=== PATIENT | female | born 1980 | race Caucasian/White ===

== ENCOUNTER 2019-05-04 03:20 | Emergency (ER) | payer MEDICAID ==
[~2019-05-04] VITALS: Ht 170.2 cm; Wt 117.4 kg
[~2019-05-04 03:20] MED LIST: AMOX-291 PO; GABA300C10 PO; HYDR-3240 PO; METO-93 PO
[2019-05-04] MEDS ORDERED: HYDROcodone/APAP 5/325 TABLET ONE (03:58)
[2019-05-04] MEDS ORDERED: HYDROcodone/APAP 5/325 TABLET PO ONE (04:00)
[2019-05-04 05:56] VITALS: BP 134/74
== END 2019-05-04 06:00 | disposition home or self-care (01) ==
LOC: ED 03:50
DX: M79.671 Pain in right foot (principal)
CPT/HCPCS: 99283

== ENCOUNTER 2020-06-02 16:27 | Emergency (ER) | payer MEDICAID ==
[~2020-06-02] VITALS: Ht 167.6 cm; Wt 99.3 kg
--- NOTE | 2020-06-02 18:31 | NUR ---
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
--- NOTE | 2020-06-02 19:03 | NUR ---
PT STATES HAVING RT HAND PAIN X2 WEEKS. 7/10 PAIN RIGHT NOW, PT DENIES TAKING MEDICATION FOR PAIN. PT STATES SHE HAS HAD CARPEL TUNNEL SX ON THAT HAND ABOUT 8 YEARS AGO. PT RESTING IN GURBRYCE, RESP EVEN/UNLABORED. GAURDED MOVEMENT WITH RT HAND, AWAITING ERP EVAL
[2020-06-02] MEDS ORDERED: HYDROcodone/APAP 5/325 TABLET PO ONE (19:11)
[2020-06-02] MEDS ORDERED: HYDROcodone/APAP 5/325 TABLET ONE (19:18)
--- NOTE | 2020-06-02 19:24 | NUR ---
PT MEDICATED PER EMAR, XRAY AT BEDSIDE
[2020-06-02 20:19] VITALS: BP 102/60
== END 2020-06-02 21:02 | disposition home or self-care (01) ==
LOC: ED 18:52
DX: M77.9 Enthesopathy, unspecified (principal); M79.644 Pain in right finger(s); M79.89 Other specified soft tissue disorders
CPT/HCPCS: 29125; 99284

== ENCOUNTER 2020-10-25 11:23 | Emergency (ER) | payer MEDICAID ==
[~2020-10-25] VITALS: Ht 167.6 cm; Wt 91.0 kg
[~2020-10-25 11:23] MED LIST changes: +HYDR-2214 PO; -HYDR-3240 PO
[2020-10-25 12:10] LABS: BASOPHILS % (AUTO) 1 % (0-1); EOSINOPHILS % (AUTO) 1 % (1-7); LYMPHOCYTES % (AUTO) 19 % (22-44); MEAN CORPUSCULAR HEMOGLOBIN 27.9 pg (27.0-34.8); MEAN CORPUSCULAR HGB CONC 34.3 g/dL (32.4-35.8); MEAN PLATELET VOLUME 8.3 fL (7.4-10.4); MONOCYTES % (AUTO) 11 % (2-9); NEUTROPHILS % (AUTO) 68 % (42-75); PLATELET COUNT 345 x10^3/uL (130-400); RED BLOOD COUNT 5.13 x10^6/uL (3.82-5.3); RED CELL DISTRIBUTION WIDTH 14.6 % (9.6-15.2)
[2020-10-25 12:18] LABS: MD NO
[2020-10-25 12:20] LABS: ANION GAP 6 mmol/L (5-15); CALCIUM 8.7 mg/dL (8.5-10.1); CHLORIDE 107 mmol/L (98-107); CREATININE 0.87 mg/dL (0.55-1.02)
--- NOTE | 2020-10-25 12:22 | NUR ---
"I THINK I HAVE SOME TYPE OF PARASITE, MY BELLY BUTTON IS BLACK AND GOOPY AND I CAN FEEL THINGS." PATIENT C/O GENERALIZED PAIN. PT TO ROOM WITH STEADY GAIT. ATTACHED TO MONITORS. VSS. CAMERON.
--- NOTE | 2020-10-25 12:29 | NUR ---
mother at bedside. pt states she "can feel worms move from scalp to belly button, there something under my skin" pt has scattered raised areas where she has been scratching. vss. muniz.
[2020-10-25 12:47] LABS: MICROSCOPIC INDICATED
[2020-10-25 12:56] LABS: AMPHETAMINE SCREEN, URINE Positive (Negative); BARBITURATE SCREEN, URINE Negative (Negative); BENZODIAZEPINE SCREEN, URINE Negative (Negative); CANNABINOID SCREEN, URINE Positive (Negative); COCAINE SCREEN, URINE Negative (Negative); METHADONE SCREEN, URINE Negative (Negative); OPIATE SCREEN, URINE Negative (Negative)
[2020-10-25 13:21] VITALS: BP 102/43
--- NOTE | 2020-10-25 13:22 | NUR ---
Patient given discharge instructions and they have confirmed that they understand the instructions. Patient ambulatory with steady gait.
== END 2020-10-25 13:23 | disposition home or self-care (01) ==
LOC: ED 12:54
DX: B35.4 Tinea corporis (principal); R20.2 Paresthesia of skin; L98.499 Non-pressure chronic ulcer of skin of other sites with unspecified severity; Z90.49 Acquired absence of other specified parts of digestive tract
CPT/HCPCS: 36415; 80048; 80307; 81001; 85025; 87086; 99283

== ENCOUNTER 2021-02-06 16:56 | Emergency (ER) | payer MEDICAID ==
[~2021-02-06] VITALS: Ht 167.6 cm; Wt 90.0 kg
[2021-02-06 18:02] LABS: BASOPHILS % (AUTO) 1 % (0-1); EOSINOPHILS % (AUTO) 1 % (1-7); LYMPHOCYTES % (AUTO) 21 % (22-44); MEAN CORPUSCULAR HEMOGLOBIN 27.6 pg (27.0-34.8); MEAN CORPUSCULAR HGB CONC 33.6 g/dL (32.4-35.8); MEAN PLATELET VOLUME 8.4 fL (7.4-10.4); MONOCYTES % (AUTO) 9 % (2-9); NEUTROPHILS % (AUTO) 68 % (42-75); PLATELET COUNT 268 x10^3/uL (130-400); RED BLOOD COUNT 4.81 x10^6/uL (3.82-5.3); RED CELL DISTRIBUTION WIDTH 14.8 % (9.6-15.2)
[2021-02-06 18:11] LABS: ALANINE AMINOTRANSFERASE 106 U/L (12-78); ALBUMIN 2.9 g/dL (3.4-5.0); ANION GAP 6 mmol/L (5-15); CALCIUM 8.7 mg/dL (8.5-10.1); CHLORIDE 104 mmol/L (98-107)
[2021-02-06 18:15] LABS: ALKALINE PHOSPHATASE 153 U/L (45-117); BILIRUBIN,TOTAL 0.3 mg/dL (0.2-1.0); TROPONIN I < 0.015 ng/mL (0.000-0.045)
--- NOTE | 2021-02-06 20:03 | NUR ---
TASK RN: PT SITTING UP IN GURNEY WATCHING TV IN NO APPARENT DISTRESS. PT REPORTS 01/08 ABD PAIN, PRIMARY RN AWARE. Addendum: 02/06/21 at 2005 by ZOHAIB PT PLACED ON BP/SPO2/ECG MONITORING. NSR ON MONITOR.
[2021-02-06 20:04] VITALS: BP 122/70
--- NOTE | 2021-02-06 20:28 | NUR ---
TASK RN: DC EDUCATION PROVIDED, PT DEMONSTRATES UNDERSTANDING. PT AMBULATED STEADILY TO DC WITH RN
[2021-02-06 22:56] LABS: CLOSTRIDIUM DIFFICILE ANTIGEN NEGATIVE; CLOSTRIDIUM DIFFICILE TOXIN NEGATIVE (Negative)
[2021-02-06 23:04] LABS: CRYPTOSPORIDIUM ANTIGEN QNS (Negative)
--- NOTE | 2021-02-06 23:09 | NUR ---
spoke c lab, states not enough of a stool sample to run all tests ordered. aware. qns for crypo giardia.
== END 2021-02-06 20:31 | disposition home or self-care (01) ==
LOC: ED 20:06
DX: R19.7 Diarrhea, unspecified (principal); Z20.822 Contact with and (suspected) exposure to COVID-19; R06.00 Dyspnea, unspecified; H57.89 Other specified disorders of eye and adnexa; R94.31 Abnormal electrocardiogram [ECG] [EKG]; Z90.49 Acquired absence of other specified parts of digestive tract
CPT/HCPCS: 36415; 70450; 71045; 80053; 84484; 85025; 87046; 87252; 87324; 87427; 93005; 99285; U0003; U0005